=== PATIENT | female | born 1990 | race Caucasian/White ===

== ENCOUNTER 2018-06-27 05:24 | Inpatient (IN) | payer OTHER ==
[2018-06-26 11:31] LABS: RPR Titer ND
[2018-06-26 11:34] LABS: Absolute Monocytes 0.5 K/uL (0.1-1.3); Absolute Neutrophil 7.1 K/uL (1.8-8.0); Basophils % 0.2 % (0-1.3); Eosinophils % 0.7 % (0-4.4); Lymphocytes % 20.5 % (15.3-44.8); MPV 9.7 fL (7.6-11.3); Monocytes % 5.1 % (3.3-12.3); RBC Red Blood Cell Count 4.13 M/uL (3.86-4.86)
[2018-06-26 11:39] LABS: Urine Appearance CLEAR; Urine Bilirubin NEGATIVE (NEG); Urine Blood NEGATIVE (NEG); Urine Color YELLOW; Urine Glucose NEGATIVE (NEG); Urine Protein NEGATIVE (NEG); Urine Specific Gravity <=1.005 (1.005-1.030); Urine Urobilinogen 0.2 mg/dL (0.2-1.0); Urine pH 7.5 (5.0-7.0)
[2018-06-26 11:48] LABS: Urine Bacteria NONE SEEN /HPF (<20); Urine Culture Reflex Order NOT NEEDED; Urine RBC <5 /HPF (NONE SEEN)
[2018-06-26 21:42] LABS: RPR (Rapid Plasma Reagin) NON-REACT (NON-REACT)
--- OUTSIDE RECORDS SUMMARY | 2018-06-27 05:27 | XMS REPORT ---
:1990 [facility] Address [address] [place] [address] Dr. Manuel [address] [place] [id number] Care Team Providers Name Role Phone Unavailable Unavailable Unavailable Problems This patient has no known problems. Allergies, Adverse Reactions, Alerts This patient has no known allergies or adverse reactions. Medications This patient has no known medications.
[2018-06-27] MEDS ORDERED: Ringers Lactate 1,000 ML IV PRN (05:32)
[2018-06-27] MEDS ORDERED: METOCLOPRAMIDE 10 MG/2mL INJ IV SCH (06:00)
[2018-06-27] MEDS ORDERED: FAMOTIDINE 20 MG/2 ML VIAL IV ONE (06:00)
[2018-06-27] MEDS ORDERED: NA CIT/CITRIC AC 30 ML ORAL UDC PO ONE (06:00)
[2018-06-27] MEDS ORDERED: Ringers Lactate 1,000 ML IV SCH (06:00)
[2018-06-27] MEDS ORDERED: CEFAZOLIN/SWI 2gm 2 GM/20 ML SYR ONE (06:37)
[2018-06-27] MEDS ORDERED: CEFAZOLIN 2 GM in NA CHLORIDE 0.9% 100 ML IVPB ONE (07:00)
[2018-06-27] MEDS ORDERED: OXYTOCIN 10 UNIT/ML ML IV ONE ×2 (07:07→08:00)
[2018-06-27] MEDS ORDERED: MORPHINE SULFATE/PF 1 MG/ML (10 ML AMP) ONE (07:07)
[2018-06-27] MEDS ORDERED: EPHEDRINE SULF 50 MG/ML VIAL ONE (07:07)
[2018-06-27] MEDS ORDERED: NS 0.9% VIAL 10 ML ONE (07:08)
[2018-06-27] MEDS ORDERED: ONDANSETRON 4 MG/2 ML VIAL ONE (07:09)
[2018-06-27 07:13] VITALS: BMI 38.6
[2018-06-27] MEDS ORDERED: MIDAZOLAM HCL 2 MG/2 ML INJ ONE (08:03)
[2018-06-27] MEDS ORDERED: METHYLERGONOVINE 0.2MG/ML AMP IM ONE (08:03)
[2018-06-27] MEDS ORDERED: KETOROLAC 30 MG/ML INJ IV PRN (08:41)
[2018-06-27] MEDS ORDERED: METHYLERGONOVINE 0.2 MG TAB PO PRN (08:41)
[2018-06-27] MEDS ORDERED: ONDANSETRON 4 MG (ODT) TAB PO PRN (08:41)
[2018-06-27] MEDS ORDERED: METHYLERGONOVINE 0.2MG/ML AMP IM PRN (08:41)
[2018-06-27] MEDS ORDERED: CARBOPROST TROME 250 MCG/ML IM PRN (08:41)
[2018-06-27] MEDS ORDERED: Oxycodone HCl/Acetaminophen 1 TAB TAB PO PRN (08:41)
--- NOTE | 2018-06-27 08:44 | P.BOP ---
Preoperative diagnosis: 40+wk , CPD Postoperative diagnosis: same, delivery viable male infant Primary procedure: Cancer Registry Coordinator: Aaliyah Hansen Estimated blood loss: 1000ml Specimen: placenta Anesthesia: Spinal Complications: None Transferred to: Other (277) Condition: Good
--- NOTE | 2018-06-27 09:38 | PREOPHP ---
Date of Admission: 06/27/2018 Subjective: Tomasa will be admitted for primary section at 40+ weeks gestation. She is a [age]-year-old female, 1, para 0, followed by me during this without significant complications other than now vertex remains at -2 to 3 station and ballotable, and cervix is closed. I believe that absolute cephalopelvic disproportion exists, and we will proceed wi th primary section for this. I think the risk of failed induction and then section is higher than outright section. Past Medical History: Please see record. Family History: Please see record. Review of Systems: She reports no recent cough, cold, fever, chills. No recent nausea, vomiting. She denies any breast lumps or breast knots. She denies any bowel or bladder issues. has been active. She denies any vaginal bleeding or spotting. Physical Examination: General: Reveals a short-statured female, in no apparent distress. Neck: Supple without adenopathy or thyromegaly. Lungs: Clear. Cardiac Exam: Regular rate and rhythm without murmurs. Breasts: Not examined. Abdomen: Estimated weight of 8+ pounds. Pelvic: Cervix closed, 30% effaced. vertex at -2 to -3 station and is ballotable. Extremities: Trace lower extremity edema. Impression: 40+ week , cephalopelvic disproportion. Plan: The patient will undergo primary section. Risks and benefits are discussed. She has signed operative permit in my presence. DAGOBERTO/ALE Voice ID: [id number]
[2018-06-27] MEDS ORDERED: Ringers Lactate 0 ML IV ONE (14:22)
--- NOTE | 2018-06-27 16:29 | P.PN ---
Date of Service: 06/27/18 No complaint, generally comfortable Afeb, vs stable, urine clear, bandage dry satisfactory Care plan discussed, will see in am.
[2018-06-27] MEDS ORDERED: Ringers Lactate 1,000 ML IV ONE (17:17)
[2018-06-27] MEDS: Oxycodone HCl/Acetaminophen 1 TAB TAB PO PRN (18:28)
[2018-06-27] MEDS: OXYTOCIN/LR 20 UNIT/1,000 ML BAG IV SCH (21:45)
--- NOTE | 2018-06-28 01:45 | OP ---
Surgeon: Devin Greene MD Anesthesiologist: Iwona Cervantes and Dr. Prince Lopez. Preoperative Diagnoses: A 40+ week , cephalopelvic disproportion. Procedure: Spinal block anesthesia, primary section, delivery of viable male infant. Postoperative Diagnoses: A 40+ week , cephalopelvic disproportion. Description Of Procedure: After the patient received 2 g of Ancef for antibiotic prophylaxis and wit h a Garzon catheter in place, a spinal block anesthesia was obtained. The patient was prepped and patrick ped in the usual fashion for abdominal surgery in usual fashion. A Pfannenstiel skin incision was ildefonso matamoros, carried down to the fascia. The fascia was incised with a combination of sharp and blunt dissect ion. This was from the underlying rectus muscles. These were divided in the midline. The peritoneum was identified and incised. Vesicouterine peritoneum was incised and bladder flap was ma de. A low-transverse uterine incision was made. An 8-pound and 10-ounce male , 9 and 9, was delivered with the aid of short Piper forceps to direct the vertex in the incision. The c ord was clamped, cut, and the infant was placed in a warmer. Cord blood was obtained. The placenta was manually removed. The uterus was then exteriorized. The cervix was dilated from above with a ri ng clamp, which was passed from the operative field. The uterus was closed in 2 layers of running no nlocking 0 Vicryl suture. A second layer was used to imbricate the first layer. Vesicouterine perit oneum was reapproximated with a running suture of 3-0 Vicryl. The uterus was returned to the periton eal cavity, which was cleaned of amniotic fluid, debris, and blood clot. The peritoneum was closed b y approximating the rectus muscles with simple sutures of 0 Vicryl. The fascia was closed with runni ng sutures of #1 Vicryl from either margin to the middle. The skin was closed with subcutaneous sutu res with 3-0 Vicryl, subdermal suture of 3-0 Vicryl, and a subcuticular suture of 4-0 Monocryl. The patient was taken to recovery room in satisfactory condition. Patient Access Representative Surgeon: Dr. Hansen. DAGOBERTO/ALE Voice ID: [id number] Report ID: [id number]
[2018-06-28] MEDS: OXYTOCIN/LR 20 UNIT/1,000 ML BAG IV SCH (03:47)
[2018-06-28] MEDS: Oxycodone HCl/Acetaminophen 1 TAB TAB PO PRN ×3 (03:56→16:15)
[2018-06-28 05:06] LABS: Absolute Lymphocytes (CBC) 1.7 K/uL (0.7-4.9); Absolute Neutrophil 11.5 K/uL (1.8-8.0); Basophils % 0.1 % (0-1.3); Eosinophils % 0.3 % (0-4.4); Hematocrit 29.6 % (36.0-45.0); MPV 9.1 fL (7.6-11.3); Monocytes % 6.7 % (3.3-12.3); RBC Red Blood Cell Count 3.17 M/uL (3.86-4.86)
[2018-06-28] MEDS: IBUPROFEN 200 MG TAB PO PRN (17:25)
[2018-06-29] MEDS: Oxycodone HCl/Acetaminophen 1 TAB TAB PO PRN (00:41)
[2018-06-29] MEDS: IBUPROFEN 200 MG TAB PO PRN (04:00)
[2018-06-29 08:20] VITALS: BP 116/70; TEMP 97.2
[2018-06-29 13:22] LABS: HBsAG Nonreactive (Nonreactive)
--- NOTE | 2018-06-30 04:02 | DS ---
Date of Discharge: 06/29/2018 Final Hospital Discharge Diagnoses: 40+ week , cephalopelvic disproportion, delivery by [facility] section. Complications: Postoperative blood loss anemia. Procedures: Spinal block anesthesia, primary section, delivery of viable male . Hospital Course: The patient is a 27-year-old female, 1, para 0, at 40+ weeks gest ation, admitted for primary section secondary to cephalopelvic disproportion with cervix rem aining closed, infant remaining -3 station and ballotable. Because of this, she is feeling that she had absolute cephalopelvic disproportion. Because of this, underwent primary section. She delivered an 8 pounds 10 ounce male , was dismissed on the second postoperative day, ambulatory on a select diet with routine post section activity restrictions, to be seen back in my off ice in 1 week. She was to continue taking her iron and vitamins. She was dismissed with a script for Tylenol No. 3 #15 for pain relief. Lab work included an admission hemoglobin and hematocr it of 12.8/38.0, dismissal 9.9/29.6. She is Rh positive blood type and had negative urinalysis. RPR negative. MPG/MODL Voice ID: [id number] Report ID: [id number]
== END 2018-06-29 09:40 | disposition home or self-care (01) | DRG 788 ==
LOC: 2ND-WC 05:24
PROVIDERS: ADMIT Specialist; ATTEND Specialist
PROC: 10D00Z1 Extraction of Products of Conception, Low, Open Approach (ICD-10-PCS; principal; 2018-06-27 07:30)
DX: O33.5XX0 Maternal care for disproportion due to unusually large fetus, not applicable or unspecified (principal); Z3A.40 40 weeks gestation of pregnancy; Z37.0 Single live birth; O90.81 Anemia of the puerperium; D50.0 Iron deficiency anemia secondary to blood loss (chronic)
CPT/HCPCS: 36415; 81001; 85025; 86592; 86850; 86900; 86901; 87340; 88307; J0690; J2210; J2250; J2405; J2590; J2765